=== PATIENT | female | born 1940 | race Caucasian/White ===

== ENCOUNTER → 2017-05-15 | Outpatient (CLI) | payer MEDICARE ==
[2017-05-15 14:00] LABS: ALT/SGPT 12 U/L (12-78); BLOOD UREA NITROGEN 17 mg/dl (7-18); BUN/CREATININE RATIO 20.6 (10-20); CALCIUM 8.9 mg/dl (8.5-10.1); CARBON DIOXIDE 27 mmol/L (21-32); CHLORIDE 107 mmol/L (98-107); CREATININE 0.81 mg/dl (0.60-1.20); GLUCOSE 83 mg/dl (70-99); POTASSIUM 3.8 mmol/L (3.5-5.1); SODIUM 140 mmol/L (136-145)
[2017-05-15 14:10] LABS: ALB/GLOB RATIO 1.2 (0.9-2); ALKALINE PHOSPHATASE 71 U/L (45-117); AST/SGOT 15 U/L (15-37)
[2017-05-15 14:14] LABS: BASO % 0.9 %; BASO ABS # 0.03 K/uL (0-0.2); COMPLETE YES; EOS % 3.4 %; HEMATOCRIT 43.2 % (37-47); LYMPH % 28.3 %; LYMPH ABS # 0.99 K/uL (1.2-3.4); MEAN CELL VOLUME 91.5 fL (80-100); MEAN CORPUSCULAR HEMOGLOBIN 30.7 pg (25-34); MEAN CORPUSCULAR HGB CONC 33.6 g/dl (32-36); MEAN PLATELET VOLUME 8.3 fL (7.4-10.4); MONO % 7.7 %; NEUT % 59.7 %; PLATELET COUNT 271 K/uL (130-400); RED BLOOD COUNT 4.72 M/uL (4.2-5.4)
== END | disposition home or self-care (01) ==
LOC: C.LABBC 09:28
PROVIDERS: ATTEND Psychiatry & Neurology Psychiatry
DX: F31.32 Bipolar disorder, current episode depressed, moderate (principal)

== ENCOUNTER → 2017-06-11 | Outpatient (CLI) | payer MEDICARE | END | disposition home or self-care (01) | LOC: C.LABBC 08:55 | PROVIDERS: ATTEND Psychiatry & Neurology Psychiatry | DX: F31.32 Bipolar disorder, current episode depressed, moderate (principal) ==

== ENCOUNTER → 2017-08-16 | Outpatient (CLI) | payer MEDICARE | END | disposition home or self-care (01) | LOC: C.LAB 10:46 | PROVIDERS: ATTEND Psychiatry & Neurology Psychiatry | DX: F31.32 Bipolar disorder, current episode depressed, moderate (principal) ==